=== PATIENT | male | born 1985 | race Caucasian/White ===

== ENCOUNTER 2022-05-29 20:21 | Emergency (ER) | payer BC ==
[2022-05-29] MEDS ORDERED: Adenosine 6 MG/2 ML SDV IVPUSH ONE ×2 (20:32→21:07)
[2022-05-29] MEDS ORDERED: Sodium Chloride 0.9% 10 ML Syringe FLUSH PRN (20:32)
[2022-05-29] MEDS ORDERED: Adenosine 6 MG/2 ML SDV ONE (20:33)
[2022-05-29] MEDS ORDERED: Propofol 200 MG/20 ML SDV ONE (20:39)
[2022-05-29] MEDS ORDERED: Propofol 200 MG/20 ML SDV IVPUSH ONE (20:40)
[2022-05-29] MEDS ORDERED: Diltiazem 25 MG/5 ML SDV ONE (20:51)
[2022-05-29 21:22] LABS: ESTIMATED GFR 73 mL/min (>60); TROPONIN I HIGH SENSITIVITY 16.6 pg/mL (<=60.3)
[2022-05-29] MEDS ORDERED: Diltiazem 25 MG/5 ML SDV IVPUSH ONE (21:26)
[2022-05-29] MEDS ORDERED: Metoprolol Succinate 25 MG Tab.ER PO ONE (22:11)
== END 2022-05-29 22:46 | disposition home or self-care (01) ==
LOC: JP.ED 20:21
DX: I47.1 Supraventricular tachycardia (principal)
CPT/HCPCS: 36415; 80053; 84443; 84484; 85025; 86140; 92960; 93005; 96374; 99285; A9270; J0153; J2704; J3490